=== PATIENT | male | born 1990 | race Two or more races ===

== ENCOUNTER 2024-06-30 11:35 | Emergency (ER) | payer MEDICAID, SELFPAY ==
[2024-06-30 12:13] VITALS: BP 123/50; PULSE 121; RESP 28; TEMP 36.7; O2SAT 92; BMI 26.4
--- NOTE | 2024-06-30 12:16 | EKG_ITS ---
[facility] Test Date: 2024-06-30 Pat Name: WILLARD LEON Department: Room: - Gender: Male Senior Enterprise Architect: : [id number] Requested By: Niels Gonzalez (LAZARO) Order Number: [id number] Reading MD: Niels Gonzalez (R PROGRAMMER) Measurements Intervals [place] Rate: 105 P: 48 VT: 144 QRS: 85 QRSD: 102 T: 40 QT: 258 QTc: 342 Interpretive Statements SINUS TACHYCARDIA NONSPECIFIC ST & T-WAVE ABNORMALITY ABNORMAL RHYTHM ECG No previous ECG available for comparison /[id number]/[email or web address]/[id number].pdf
--- NOTE | 2024-06-30 12:16 | XR_ITS ---
Examination: PA lateral chest 2 views TECHNIQUE: Upright PA lateral chest 2 views Exam date and time: June 30, 2024 1241 hours Comparison November 17, 2016 INDICATIONS: Coughing shortness of breath today FINDINGS: Normal heart size The lungs are clear. The osseous structures are intact IMPRESSION: No active disease
--- NOTE | 2024-06-30 12:20 | PD.EDRME ---
Rapid Medical Screening Exam RME Arrival date/time: 06/30/24 11:35 34-year-old male presents the emergency department complains of shortness of breath Chief Complaint: Shortness of Breath/Dyspnea Time Seen by Provider: 06/30/24 11:39 Vital signs: Vital Signs Temperature 98.0 F 06/30/24 12:13 Pulse Rate 121 H 06/30/24 12:13 Respiratory Rate 28 H 06/30/24 12:13 Blood Pressure 123/50 L 06/30/24 12:13 Pulse Oximetry (%) 92 L 06/30/24 12:13 Oxygen Delivery Method Room Air 06/30/24 12:13
--- NOTE | 2024-06-30 12:35 | PD.EDSOB ---
ED SOB =RME/HPI General Chief Complaint: Shortness of Breath/Dyspnea Stated Complaint: SOB, SORE THROAT, FEVER Time Seen by Provider: 06/30/24 11:39 Arrival date/time: 06/30/24 11:35 RME / HPI RME / HPI Narrative: 06/30/24 11:35 34-year-old male presents the emergency department complains of shortness of breath This section includes all my notes and documentations, including HPI, PE, MDM, Procedure Notes, and PLAN. Ra Quinones MD HPI: 34 year old male with about a week history of worsening cough, productive cough, purulent sputum, and dyspnea. No fever or chills.. No other complaints. ROS: All negative except as documented in HPI. Physical Exam: General:? Alert and oriented.? In mild respiratory distress. Eyes:? Conjunctivae and lids clear.? ENT:? No nasal congestion.? Pharynx normal.? Tympanic membrane normal bilaterally.??? Neck:? Supple.? No JVD.?? Heart:? RRR.? Lungs: Mild respiratory distress.? Severely decreased air movement with diffuse wheezing. Legs:? No clubbing, cyanosis, edema.? Skin:? Warm and dry.?? Neuro:? Alert and oriented X 3.? I reviewed all diagnostic test results. My interpretation of the EKG is sinus rhythm with nonspecific ST-T changes. My interpretation of the chest x-ray is increased bronchial markings. Blood tests remarkable for K 3.3 and negative troponin/D-dimer/BNP. COVID/influenza/RSV negative. At this point, diagnoses include bronchitis with severe bronchospasm. Treatment here included Solu-Medrol 125 mg IV, MgSO4 2 gram IV, DuoNeb X 2, and two Tylenol #3. Significant improvement noted subjectively and objectively. Recommended trial of outpatient treatment. Based on my best medical judgment, made decision no further evaluation or treatment indicated at this time. Patient understands and agrees to the discharge instructions customized and printed, see below. Discharge instructions from Dr. Quinones: --After extensive evaluation, there is no life-threatening condition. Such as heart attack or blood clots in your lungs or collapsed lung. You have bronchitis. --No physical exertion for 3 days to help rest the lungs. --No smoking or exposure to smoking or pets or dust or cold or humidity. --Zithromax to kill the germs causing the bronchitis. --Prednisone to help decrease the swelling in the airways. --Albuterol 2 puffs every 4-6 hours for 3 days to help keep the airways open. Then as needed for cough or shortness of breath. --See a private doctor on 07/02/2024. Ask to review all test results and official radiology reports, to make sure you receive all necessary follow-ups and monitoring. Ask for a referral to see a lung specialist, to make sure there is no serious underlying lung condition such as asthma or COPD. --Seek immediate medical care with worsening or with any concerns. Ra Quinones MD Related Data Previous Rx's ?Medication ?Instructions ?Recorded albuterol sulfate 90 mcg/actuation 2 inh inhalation QID PRN shortness 06/30/24 aerosol inhaler of breath or wheezing #8.5 grams azithromycin 500 mg tablet 500 mg PO QDAY 3 days #3 tabs 06/30/24 (Zithromax TRI-MARTHA) prednisone 20 mg tablet 40 mg PO BID 3 days #12 tabs 06/30/24 Allergies Allergy/AdvReac Type Severity Reaction Status Date / Time penicillin G Allergy Severe Rash Unverified 06/30/24 14:59 Past Medical History Past Medical History CARDIAC: Positive Heart Murmur; Negative Congestive Heart Failure RESPIRATORY: Negative Chronic Obstructive Pulmonary Disease (COPD) GENITOURINARY: Negative Renal Disease ENDOCRINE: Negative Diabetes Mellitus Type 1 or Diabetes Mellitus Type 2 Social History SMOKING STATUS: Current every day smoker ED Exam Narrative Physical exam: As noted in HPI Course Course Course Narrative: chest xray ordered to help determine etiology of shortness of breath. Quality Measures none Orders Category Date Time Status Bedside COVID-19 Antigen Test NOW Care 06/30/24 12:16 Completed Bedside Influenza A&B Antigen Test NOW Care 06/30/24 12:16 Completed EKG (ED ONLY) *Do not use* NOW Care 06/30/24 12:16 Completed Miscellaneous Nursing Order NOW Care 06/30/24 13:48 Completed Saline [Insert IV] NOW Care 06/30/24 12:33 Completed EKG (ED Only) Stat Exams 06/30/24 12:16 Draft XR chest 2V Stat Exams 06/30/24 12:16 Completed ABG [Arterial Blood Gas] Stat Lab 06/30/24 13:25 Completed B-Type Natriuretic Peptide Stat Lab 06/30/24 12:50 Completed CBC Stat Lab 06/30/24 12:50 Completed Comprehensive Metabolic Panel Stat Lab 06/30/24 12:50 Completed D-Dimer Stat Lab 06/30/24 12:50 Completed Magnesium Stat Lab 06/30/24 12:50 Completed Partial Thromboplastin Time Stat Lab 06/30/24 12:50 Completed Prothrombin Time with INR Stat Lab 06/30/24 12:50 Completed RSV [Respiratory Syncytial Virus Ag] Stat Lab 06/30/24 12:50 Completed Troponin I Stat Lab 06/30/24 12:50 Completed ACETAMINOPHEN w/COD 300-30 [Tylenol w/Cod #3] Med 06/30/24 12:32 Discontinued 2 tab PO X1 ONE Albuterol* Inhaler [Proventil Inhaler] Med 06/30/24 13:48 Discontinued 2 puff INH X1 ONE Albuterol/Ipratr Rt Emilia [Duoneb Rt Emilia] Med 06/30/24 12:32 Discontinued 6 ml INH X1 ONE KCL 10% Liq UDC 15 ML Med 06/30/24 13:42 Discontinued 40 meq PO X1 ONE Magnesium Sulfate 2 GM Ivpb [Magnesium Sulfate Ivpb] Med 06/30/24 12:32 Discontinued 2 gm in 50 ml IV X1 MethylPREDNISolone.* [SoluMEDROL Inj] Med 06/30/24 12:32 Discontinued 125 mg IVP X1 ONE Vital Signs Vital signs: Vital Signs Temperature 98.0 F 06/30/24 12:13 Pulse Rate 121 H 06/30/24 12:13 Respiratory Rate 28 H 06/30/24 12:13 Blood Pressure 123/50 L 06/30/24 12:13 Pulse Oximetry (%) 92 L 06/30/24 12:13 Oxygen Delivery Method Room Air 06/30/24 12:13 Pulse ox is 92% on room air which is low. Shortness of Breath / Dyspnea MDM Narrative MDM Narrative:: Kalli Cancino am scribing for and in the presence of Dr. Quinones. Patient data External records reviewed:: [facility] previous records (I reviewed ED visit on 10/11/2023) Clinical information provided by:: patient Social determinants that could affect healthcare access:: other (specify) (Active tobacco smokers, states he smokes maybe 1 cigarette a day) Patient has the following chronic illnesses:: None reported How is presenting disease/condition affected by chronic disease/condition?: no chronic disease Evaluation data The following diagnostics were reviewed and interpreted by me:: lab results, radiology exam(s) and EKG tracing(s) (My interpretation of the EKG is: Sinus rhythm (105 bpm) with nonspecific ST-T changes. Ra Quinones MD) Lab and/or radiology exams considered but not ordered:: None Interpretation Summary: Bronchitis Medications / Prescriptions Medications or Prescriptions considered but not ordered:: None Medication administrations:: Medication Administration History Discontinued Medications Acetaminophen/Codeine Phosphate (Acetaminophen W/Cod 300-30 Tablet) 2 tab PO X1 ONE Stop: 06/30/24 12:33 Last Admin: 06/30/24 13:03 Dose: 2 tab Documented By: PETE Albuterol (Albuterol Inh 8 Gm) 2 puff INH X1 ONE Stop: 06/30/24 13:49 Last Admin: 06/30/24 14:03 Dose: 2 puff Documented By: NURIA Albuterol/Ipratropium (Albuterol/Ipratropium (Duoneb) Rt Emilia 3 Ml Nebu) 6 ml INH X1 ONE Stop: 06/30/24 12:33 Last Admin: 06/30/24 12:51 Dose: 6 ml Documented By: NURIA Magnesium Sulfate (Magnesium Sulfate Ivpb) 2 gm in 50 mls @ 25 mls/hr IV X1 ONE Stop: 06/30/24 14:31 Last Infusion: 06/30/24 14:59 Dose: Infused Documented By: Admin: 06/30/24 13:03 Dose: 25 mls/hr Documented By: PETE Methylprednisolone Sodium Succinate (Methylprednisolone Sod Succ 62.5 Mg/Ml 2ml Vial) 125 mg IVP X1 ONE Stop: 06/30/24 12:33 Last Admin: 06/30/24 13:04 Dose: 125 mg Documented By: PETE Potassium Chloride (Potassium Chloride 10% 20 Meq/15 Ml Udc) 40 meq PO X1 ONE Stop: 06/30/24 13:43 Last Admin: 06/30/24 14:53 Dose: 40 meq Documented By: JACK Solu-Medrol and MgSO4 IV and neb treatments and Tylenol #3 Consultations Consultation(s) initiated? (list below): No Diagnosis Shortness of Breath Differential Diagnosis: acute exacerbation of chronic obstructive airways disease, congestive heart failure, community acquired pneumonia, asthma with exacerbation, pulmonary embolism and other (Viral illness) Most likely diagnosis given after review of the tests above:: Bronchitis Admission Indicated Admission indicated?: not indicated Explain why admission is indicated or not indicated:: Admission criteria not met Admission Request Was there a request for admission?: No Disposition Plan Disposition Plan: Discharge Discharge Attestation Discharge Attestation: The patient and all family members were given an opportunity to ask questions and understood the discharge instructions. Discharge instructions specifically effects, indications for sooner follow up or return to the emergency department, and the expected course of current diagnosis. Patient condition: Stable Discharge Plan Plan Patient Disposition: HOME (Self Care) Prescriptions/Referrals Prescriptions/Med Rec: New albuterol sulfate 90 mcg/actuation HFA aerosol inhaler 2 inh inhalation QID PRN (Reason: shortness of breath or wheezing) Qty: 8.5 0RF prednisone 20 mg tablet 40 mg PO BID 3 Days Qty: 12 0RF Taper: Prednisone Taper 20 mg DAILY for 2 Days and 0 Hour 10 mg DAILY for 2 Days and 0 Hour 5 mg DAILY for 7 Days and 0 Hour azithromycin [Zithromax TRI-MARTHA] 500 mg tablet 500 mg PO QDAY 3 Days Qty: 3 0RF Referrals: No Primary/Family,Physician [Primary Care Provider] - In 1 week Problem List Clinical Impression: Bronchitis Patient/Caregiver Discharge Instructions Discharge Activity: activity as tolerated Education Materials: ED Bronchitis with Wheezing (Adult) Additional Instructions: Discharge instructions from Dr. Quinones: --After extensive evaluation, there is no life-threatening condition. Such as heart attack or blood clots in your lungs or collapsed lung. You have bronchitis. --No physical exertion for 3 days to help rest the lungs. --No smoking or exposure to smoking or pets or dust or cold or humidity. --Zithromax to kill the germs causing the bronchitis. --Prednisone to help decrease the swelling in the airways. --Albuterol 2 puffs every 4-6 hours for 3 days to help keep the airways open. Then as needed for cough or shortness of breath. --See a private doctor on 07/02/2024. Ask to review all test results and official radiology reports, to make sure you receive all necessary follow-ups and monitoring. Ask for a referral to see a lung specialist, to make sure there is no serious underlying lung condition such as asthma or COPD. --Seek immediate medical care with worsening or with any concerns. Print Language: Cambodian Stand Alone Forms: [facility] Award Info., Patient Portal Info Letter
[2024-06-30] MEDS: ALBUTEROL/IPRATROPIUM (Duoneb) RT SOL 3 ML NEBU 6 ML INH (12:51)
[2024-06-30 12:54] VITALS: PULSE 106; RESP 42; O2SAT 95
[2024-06-30 13:02] LABS: Basophils # (Auto) 0.1 Thou/mm3 (0.0-0.2); Basophils % (Auto) 0 % (0-2.5); Eosinophils # (Auto) 0.4 Thou/mm3 (0.0-0.5); Eosinophils % (Auto) 4 % (0-10); Hematocrit 48.7 % (41.0-53.0); Hemoglobin 16.5 g/dL (13.5-16.0); Immature Granulocytes % (Auto) 0 % (0-0); Immature Granulocytes Auto 0.03 Thou/mm3 (0.00-0.00); Lymphocytes % (Auto) 9 % (10-50); Mean Corpuscular HGB Conc 33.9 g/dl (31.0-37.0); Mean Corpuscular Hemoglobin 30.8 pg (25.0-35.0); Mean Corpuscular Volume 91 fL (80-100); Monocytes % (Auto) 8 % (0-12); Neutrophils # (Auto) 8.9 Thou/mm3 (1.8-7.7); Neutrophils % (Auto) 78 % (37-80); Nucleated Red Blood Cell % 0 /100 WBC (0); Platelet Count 213 Thou/mm3 (140-440); RDW Standard Deviation 43.3 fL (35.1-43.9); Red Blood Count 5.35 Miln/mm3 (4.50-5.90); White Blood Count 11.5 Thou/mm3 (3.8-10.6)
[2024-06-30] MEDS: ACETAMINOPHEN w/COD 300-30 TABLET 2 TAB PO (13:03)
[2024-06-30] MEDS: Magnesium Sulfate 2 GM Ivpb 2 GM/50 ML BAG IV (13:03)
[2024-06-30] MEDS: MethylPREDNISolone SOD SUCC 62.5 MG/ML 2ML VIAL 125 MG IVP (13:04)
[2024-06-30 13:16] LABS: INR 1.1 (0.9-1.3); Partial Thromboplastin Time 26.6 Seconds (22.0-36.0)
[2024-06-30 13:20] LABS: Respiratory Syncytial Virus Ag Negative (Negative)
[2024-06-30 13:22] LABS: B-Type Natriuretic Peptide < 20 pg/mL (0-100)
[2024-06-30 13:26] LABS: Alanine Aminotransferase 29 U/L (10-49); Albumin, Serum 4.8 gm/dL (3.5-5.0); Albumin/Globulin Ratio 1.6 (1.2-2.2); Alkaline Phosphatase 68 U/L (46-116); Anion Gap 10 (7-16); Aspartate Amino Transferase 28 U/L (0-34); BUN/Creatinine Ratio 10 Ratio (12-20); Bilirubin,Total 3.1 mg/dL (0.3-1.2); Blood Urea Nitrogen 11 mg/dL (9-23); Calcium 9.4 mg/dL (8.3-10.6); Calcium (Corrected) 9.4 mg/dL (8.5-10.1); Carbon Dioxide 24.8 mMol/L (20.0-31.0); Chloride 102 mMol/L (98-107); Creatinine (Component) 1.1 mg/dL (0.6-1.3); Estimated Creatinine Clearance 92.8 mL/min (>60); Glucose 100 mg/dL (74-106); Magnesium 1.7 mg/dL (1.6-2.6); Osmolality,Calculated 273 (275-295); Potassium 3.3 mMol/L (3.4-5.1); Sodium 137 mMol/L (136-145); Total Protein 7.8 gm/dL (5.7-8.2); Troponin I 0.045 ng/mL (0.0-0.045); eGFR > 60 See Note
[2024-06-30 13:28] LABS: Base Excess 5 (-3-3); HCO3 32 mEq/L (20-26); Inspired Oxygen, FIO2 21 %; O2 Saturation 33 % (91-98); PCO2 51 mmHg (32.0-48.0)
[2024-06-30 13:28] LABS: D-Dimer < 250 ng/mL (<600)
[2024-06-30 13:37] LABS: Allen Test Performed/OK; PO2 21 mmHg (83-108); Puncture Site Right Brachial
[2024-06-30] MEDS: ALBUTEROL INH 8 GM 2 PUFF INH (14:03)
[2024-06-30 14:05] VITALS: PULSE 96; RESP 18; O2SAT 92
[2024-06-30 14:06] VITALS: BP 129/81; PULSE 96; RESP 18; TEMP 37.1; O2SAT 93
[2024-06-30] MEDS: POTASSIUM CHLORIDE 10% 20 MEQ/15 ML UDC 40 MEQ PO (14:53)
== END 2024-06-30 15:06 | disposition home or self-care (01) ==
PROVIDERS: Nurse Practitioner Primary Care; Emergency Provider Emergency Medicine
DX: J40 Bronchitis, not specified as acute or chronic (principal)
CPT/HCPCS: 36415; 36600; 71046; 80053; 80307; 81001; 82803; 83735; 83880; 84484; 85025; 85379; 85610; 85730; 87400; 87634; 87811; 93005; 94640; 96365; 96366; 96375; 99284; A9270; J2919; J3475